=== PATIENT | male | born 1945 | race Caucasian/White ===

== ENCOUNTER → 2016-11-25 | Outpatient (CLI) | payer MEDICARE, OTHER ==
[2016-11-25 18:21] LABS: Basophils # (A) 0.1 k/uL (0-0.2); Basophils % (A) 1 %; CHCM 32.8; Eosinophils # (A) 0.3 k/uL (0-0.7); Eosinophils % (A) 7 %; HCT 44.5 % (39.0-53.0); HDW 2.42; HGB 14.6 gm/dL (13.0-17.5); Luc # (Auto) 0.14; Luc % (Auto) 3; Lymphocytes # (A) 0.9 k/uL (1.0-4.8); Lymphocytes % (A) 22 %; MCH 31.3 pg (25.0-35.0); MCHC 32.9 g/dL (31.0-37.0); MCV 94.9 fL (80.0-100.0); Mean Platelet Volume 8.1; Monocytes # (A) 0.4 k/uL (0-1.0); Monocytes % (A) 8 %; Neutrophils # (A) 2.5 k/uL (1.3-7.7); Neutrophils % (A) 58 %; RBC 4.69 m/uL (4.30-5.90); RDW 12.5 % (11.5-15.5); WBC 4.3 k/uL (3.8-10.6); WBC (Perox) 4.38
== END | disposition home or self-care (01) ==
LOC: MMGSC 09:42
PROVIDERS: ATTEND Family Medicine
DX: Z00.00 Encounter for general adult medical examination without abnormal findings (principal); R97.20 Elevated prostate specific antigen [PSA]; I10 Essential (primary) hypertension; Z12.5 Encounter for screening for malignant neoplasm of prostate
CPT/HCPCS: 84439; 84443; 85025; G0103; 36415; 80053; 80061

== ENCOUNTER → 2016-11-25 | Outpatient (CLI) | payer MEDICARE, OTHER ==
[2016-11-25 18:26] LABS: ALT 39 U/L (21-72); AST 32 U/L (17-59); Alkaline Phosphatase 56 U/L (38-126); Anion Gap 10 mmol/L; Blood Urea Nitrogen 20 mg/dL (9-20); Calcium 9.5 mg/dL (8.4-10.2); Carbon Dioxide 28 mmol/L (22-30); Chloride 102 mmol/L (98-107); Cholesterol 176 mg/dL (<200); Glucose 104 mg/dL (74-99); HDL Cholesterol 65 mg/dL (40-60); Non-African American GFR(MDRD) 60 (>60 ml/min/1.73 sqM); Potassium 5.4 mmol/L (3.5-5.1); Sodium 140 mmol/L (137-145); Total Protein 7.9 g/dL (6.3-8.2); Triglycerides 83 mg/dL (<150)
== END ==
LOC: MMGSC 09:35
PROVIDERS: ATTEND Internal Medicine Interventional Cardiology
DX: E78.2 Mixed hyperlipidemia (principal)
CPT/HCPCS: 36415; 80053; 80061

== ENCOUNTER → 2016-11-29 | Outpatient (CLI) | payer MEDICARE, OTHER | END | disposition home or self-care (01) | LOC: MMGSC 10:30 | PROVIDERS: ATTEND Family Medicine | DX: E83.52 Hypercalcemia (principal) | CPT/HCPCS: 36415; 84132 ==

== ENCOUNTER → 2017-12-09 | Outpatient (CLI) | payer MEDICARE, OTHER ==
[2017-12-09 10:14] LABS: Basophils % (A) 1 %; Eosinophils # (A) 0.2 k/uL (0-0.7); Eosinophils % (A) 4 %; HCT 41.2 % (39.0-53.0); HGB 14.1 gm/dL (13.0-17.5); Lymphocytes % (A) 24 %; MCH 30.8 pg (25.0-35.0); MCHC 34.1 g/dL (31.0-37.0); MCV 90.4 fL (80.0-100.0); Mean Platelet Volume 7.2; Monocytes # (A) 0.3 k/uL (0-1.0); Monocytes % (A) 7 %; Neutrophils # (A) 2.3 k/uL (1.3-7.7); Neutrophils % (A) 60 %; Platelet Count 185 k/uL (150-450); RBC 4.57 m/uL (4.30-5.90); RDW 12.3 % (11.5-15.5); WBC 3.9 k/uL (3.8-10.6)
[2017-12-09 10:33] LABS: Albumin 4.5 g/dL (3.5-5.0); Calcium 9.9 mg/dL (8.4-10.2); Potassium 4.9 mmol/L (3.5-5.1); Total Bilirubin 0.8 mg/dL (0.2-1.3); Total Protein 7.5 g/dL (6.3-8.2)
[2017-12-09 10:46] LABS: T4, Free (Free Thyroxine) 1.04 ng/dL (0.78-2.19)
[2017-12-09 18:57] LABS: Hemoglobin A1C 5.5 % (4.0-6.0)
== END | disposition home or self-care (01) ==
LOC: LABWHC1 09:35
PROVIDERS: ATTEND Internal Medicine Interventional Cardiology
DX: R73.01 Impaired fasting glucose (principal); E78.2 Mixed hyperlipidemia; R97.20 Elevated prostate specific antigen [PSA]; E78.5 Hyperlipidemia, unspecified; I49.9 Cardiac arrhythmia, unspecified
CPT/HCPCS: 36415; 80053; 80061; 82607; 83036; 83735; 84153; 84154; 84439; 84443; 85025

== ENCOUNTER → 2018-06-15 | Outpatient (CLI) | payer MEDICARE, OTHER ==
[2018-06-15 09:21] LABS: Basophils % (A) 1 %; Eosinophils # (A) 0.2 k/uL (0-0.7); Eosinophils % (A) 5 %; HCT 38.8 % (39.0-53.0); HGB 12.4 gm/dL (13.0-17.5); Lymphocytes # (A) 0.8 k/uL (1.0-4.8); Lymphocytes % (A) 22 %; MCH 30.7 pg (25.0-35.0); MCV 95.9 fL (80.0-100.0); Mean Platelet Volume 7.1; Monocytes # (A) 0.3 k/uL (0-1.0); Monocytes % (A) 8 %; Neutrophils # (A) 2.1 k/uL (1.3-7.7); Neutrophils % (A) 60 %; Platelet Count 160 k/uL (150-450); RBC 4.05 m/uL (4.30-5.90); WBC 3.4 k/uL (3.8-10.6)
[2018-06-15 10:08] LABS: T4, Free (Free Thyroxine) 1.01 ng/dL (0.78-2.19)
[2018-06-15 10:22] LABS: Prostate Specific Antigen 2.69 ng/mL (0.00-4.00)
[2018-06-15 10:32] LABS: Albumin 3.8 g/dL (3.5-5.0); Calcium 9.1 mg/dL (8.4-10.2); Potassium 5.3 mmol/L (3.5-5.1); Total Bilirubin 0.5 mg/dL (0.2-1.3); Total Protein 6.5 g/dL (6.3-8.2)
[2018-06-15 17:38] LABS: Hemoglobin A1C 5.7 % (4.0-6.0)
== END | disposition home or self-care (01) ==
LOC: LABWHC1 08:22
PROVIDERS: ATTEND Internal Medicine Interventional Cardiology
DX: E53.8 Deficiency of other specified B group vitamins (principal); E78.2 Mixed hyperlipidemia; K63.5 Polyp of colon; R97.20 Elevated prostate specific antigen [PSA]; Z51.81 Encounter for therapeutic drug level monitoring; Z79.01 Long term (current) use of anticoagulants
CPT/HCPCS: 36415; 80053; 80061; 82607; 83036; 84153; 84439; 84443; 85025

== ENCOUNTER → 2018-10-29 | Outpatient (CLI) | payer MEDICARE, OTHER ==
[2018-10-29 09:41] LABS: Basophils # (A) 0.1 k/uL (0-0.2); Basophils % (A) 2 %; Eosinophils # (A) 0.2 k/uL (0-0.7); Eosinophils % (A) 5 %; HCT 39.3 % (39.0-53.0); HGB 13.2 gm/dL (13.0-17.5); Lymphocytes # (A) 0.7 k/uL (1.0-4.8); Lymphocytes % (A) 20 %; MCH 31.5 pg (25.0-35.0); MCHC 33.5 g/dL (31.0-37.0); MCV 93.9 fL (80.0-100.0); Mean Platelet Volume 7.1; Monocytes # (A) 0.4 k/uL (0-1.0); Monocytes % (A) 10 %; Neutrophils # (A) 2.2 k/uL (1.3-7.7); Neutrophils % (A) 59 %; Platelet Count 173 k/uL (150-450); RBC 4.19 m/uL (4.30-5.90); RDW 13.5 % (11.5-15.5); WBC 3.7 k/uL (3.8-10.6)
[2018-10-29 16:28] LABS: ALT 23 U/L (10-49); AST 30 U/L (14-35); Alkaline Phosphatase 55 U/L (41-126); Calcium 8.4 mg/dL (8.7-10.3); Carbon Dioxide 27.4 mmol/L (21.6-31.8); Chloride 106 mmol/L (96-109); Cholesterol 135 mg/dL (0-200); Glucose 93 mg/dL (70-110); Magnesium 1.8 mg/dL (1.5-2.4); Potassium 4.4 mmol/L (3.5-5.5); Sodium 140 mmol/L (135-145); Total Bilirubin 0.8 mg/dL (0.3-1.2); Triglycerides <50.0 mg/dL (0.0-149.0); VLDL Calculation 9.98 mg/dL (5.00-40.00)
[2018-10-29 18:37] LABS: Hemoglobin A1C 5.8 % (4.0-6.0)
== END | disposition home or self-care (01) ==
LOC: LABWHC1 08:51
PROVIDERS: ATTEND Internal Medicine Interventional Cardiology
DX: E78.5 Hyperlipidemia, unspecified (principal); E78.2 Mixed hyperlipidemia; T78.3XXA Angioneurotic edema, initial encounter; R73.01 Impaired fasting glucose
CPT/HCPCS: 36415; 80053; 80061; 83036; 83735; 84443; 85025

== ENCOUNTER 2018-12-09 08:50 | Day surgery (SDC) | payer MEDICARE, OTHER ==
[2018-12-07 12:08] VITALS: BMI 27.2
[~2018-12-09 08:50] MED LIST: LACTATED RINGERS 1,000 ML IV SCH
[2018-12-09 09:20] VITALS: RESP 16; TEMP 96.5
[2018-12-09] MEDS ORDERED: LIDOCAINE 1% 20 ML VIAL (10MG/ML) FOR IV START INTRADERMA ONE (09:32)
[2018-12-09] MEDS ORDERED: LIDOCAINE 1% INJ 10MG/ML (20 ML MDV) ONE (09:45)
[2018-12-09] MEDS ORDERED: PROPOFOL 10 MG/ML 20 ML VIAL IV ONE (09:45)
--- NOTE | 2018-12-09 09:55 | P.PCN ---
Date of Procedure: 12/09/18 Procedure(s) Performed: BRIEF HISTORY: Patient is a 73-year-old, pleasant, white male, scheduled for an upper endoscopy with possible dilation as a part of evaluation of intermittent dysphagia to solids for the last 1 year duration. He does have long-standing history of GERD and has been on Protonix 40 mg daily. PROCEDURE PERFORMED: Esophagogastroduodenoscopy with biopsy. PREOPERATIVE DIAGNOSIS: Long-standing history of GERD/intermittent dysphagia.. IV sedation per anesthesia. PROCEDURE: After informed consent was obtained, the patient was brought into the endoscopy unit. IV sedation was administered by Anesthesia under continuous monitoring. Initially the Olympus GIF-140 video endoscope was inserted into the mouth. Esophagus intubated without any difficulty. It was gradually advanced into the stomach and duodenum and carefully examined. The bulb and the second part of the duodenum appeared normal. The scope at this time was withdrawn to the stomach, adequately insufflated with air, and upon careful examination, mucosa of the antrum, body, cardia and the fundus appeared normal. The scope was then withdrawn into the esophagus. Moderate size hiatal hernia noted. The GE junction was located at 37 cm from the incisors. There was a short segment of Crespo's esophagus extending 2-3 mm proximal to the GE junction and this was biopsied. The rest of the esophagus appeared normal. There were no erosions or ulcerations seen. The proximal cervical esophagus was carefully examined and appeared normal and the patient tolerated the procedure well. IMPRESSION: 1. Moderate size hiatal hernia. 2. Short segment Crespo's esophagus. 3. No evidence of esophageal stricture ZENKER'S diverticulum RECOMMENDATIONS: The findings of this examination were discussed with the patient as well as a family. He was advised to follow with the biopsy results. He will continue with Protonix 40 mg daily and follow antireflux measures.
[2018-12-09 10:29] VITALS: BP 107/65; PULSE 45
== END 2018-12-09 10:38 | disposition home or self-care (01) ==
LOC: ORWHC2ENDO 08:50
PROVIDERS: ATTEND Internal Medicine Gastroenterology
DX: K22.70 Barrett's esophagus without dysplasia (principal); K21.9 Gastro-esophageal reflux disease without esophagitis; K44.9 Diaphragmatic hernia without obstruction or gangrene; Z79.02 Long term (current) use of antithrombotics/antiplatelets; Z79.899 Other long term (current) drug therapy; E78.5 Hyperlipidemia, unspecified
CPT/HCPCS: 88305; 43239; J2001; J2704

== ENCOUNTER → 2019-06-22 | Outpatient (CLI) | payer MEDICARE, OTHER ==
[2019-06-22 09:28] LABS: HCT 39.1 % (39.0-53.0); HGB 12.7 gm/dL (13.0-17.5); MCH 30.3 pg (25.0-35.0); MCHC 32.4 g/dL (31.0-37.0); MCV 93.6 fL (80.0-100.0); Mean Platelet Volume 6.8; Platelet Count 160 k/uL (150-450); RBC 4.18 m/uL (4.30-5.90); RDW 12.7 % (11.5-15.5); WBC 3.8 k/uL (3.8-10.6)
[2019-06-22 10:39] LABS: Eosinophils # (M) 0.38 k/uL (0-0.7); Lymphocytes # (M) 1.14 k/uL (1.0-4.8); Monocytes # (M) 0.42 k/uL (0-1.0); Neutrophils % (M) 49 %; Nucleated Red Blood Cells 0 /100 WBC (0-0); Total Cells Counted 100
[2019-06-22 17:10] LABS: African American GFR (CKD) 76.2 (60.0-200.0); Albumin 4.3 g/dL (3.80-4.90); Albumin/Globulin Ratio 2.15 (1.60-3.17); Anion Gap 7.5 mmol/L (4.00-12.00); BUN/Creat Ratio 17.27 Ratio (12.00-20.00); Calcium 8.8 mg/dL (8.7-10.3); Carbon Dioxide 25.5 mmol/L (21.6-31.8); Chol/HDL Ratio 2.49; LDL Cholesterol,Calculated 73.4 mg/dL (0.0-131.0); Magnesium 1.8 mg/dL (1.5-2.4); Potassium 4.5 mmol/L (3.5-5.5); Total Bilirubin 0.6 mg/dL (0.3-1.2); Total Protein 6.3 g/dL (6.2-8.2); VLDL Calculation 11.6 mg/dL (5.00-40.00)
[2019-06-22 20:36] LABS: Hemoglobin A1C 5.7 % (4.0-6.0)
== END | disposition home or self-care (01) ==
LOC: LABWHC1 08:20
PROVIDERS: ATTEND Nurse Practitioner Adult Health
DX: R73.01 Impaired fasting glucose (principal); E78.5 Hyperlipidemia, unspecified; K22.70 Barrett's esophagus without dysplasia; I49.9 Cardiac arrhythmia, unspecified; R13.14 Dysphagia, pharyngoesophageal phase; E78.2 Mixed hyperlipidemia
CPT/HCPCS: 36415; 80053; 80061; 82550; 83036; 83735; 84443; 85025

== ENCOUNTER → 2019-11-12 | Outpatient (CLI) | payer MEDICARE, OTHER ==
[2019-11-12 10:09] LABS: Basophils % (A) 0 %; Eosinophils # (A) 0.2 k/uL (0-0.7); Eosinophils % (A) 6 %; HCT 41.3 % (39.0-53.0); HGB 13.5 gm/dL (13.0-17.5); Lymphocytes # (A) 0.8 k/uL (1.0-4.8); Lymphocytes % (A) 21 %; MCH 30.9 pg (25.0-35.0); MCHC 32.7 g/dL (31.0-37.0); MCV 94.6 fL (80.0-100.0); Mean Platelet Volume 7.7; Monocytes # (A) 0.3 k/uL (0-1.0); Monocytes % (A) 8 %; Neutrophils # (A) 2.2 k/uL (1.3-7.7); Neutrophils % (A) 60 %; Platelet Count 154 k/uL (150-450); RBC 4.37 m/uL (4.30-5.90); RDW 12.3 % (11.5-15.5); WBC 3.7 k/uL (3.8-10.6)
[2019-11-12 10:14] LABS: Appearance,Urine Clear (Clear); Bilirubin,Urine Negative (Negative); Blood,Urine Negative (Negative); Color,Urine Yellow; Glucose,Urine (UA) Negative (Negative); Ketones,Urine Negative (Negative); Leukocyte Esterase,Urine Negative (Negative); Nitrite,Urine Negative (Negative); PH, Urine 6.5 (5.0-8.0); Protein,Urine Negative (Negative); Specific Gravity,Urine 1.011 (1.001-1.035); Urobilinogen,Urine <2.0 mg/dL (<2.0)
[2019-11-12 17:50] LABS: T4, Free (Free Thyroxine) 1.2 ng/dL (0.80-1.80)
[2019-11-12 18:06] LABS: Albumin 4.4 g/dL (3.80-4.90); Albumin/Globulin Ratio 2.32 (1.60-3.17); Anion Gap 5.2 mmol/L (4.00-12.00); BUN/Creat Ratio 16.43 Ratio (12.00-20.00); Calcium 9.1 mg/dL (8.7-10.3); Carbon Dioxide 30.8 mmol/L (21.6-31.8); Chol/HDL Ratio 2.52; Globulin 1.9 g/dL (1.6-3.3); LDL Cholesterol,Calculated 82.6 mg/dL (0.0-131.0); Magnesium 2.1 mg/dL (1.5-2.4); Non-African American GFR(CKD) 49.1 (60.0-200.0); Potassium 4.5 mmol/L (3.5-5.5); Total Bilirubin 0.5 mg/dL (0.3-1.2); Total Protein 6.3 g/dL (6.2-8.2); VLDL Calculation 11.4 mg/dL (5.00-40.00)
== END | disposition home or self-care (01) ==
LOC: LABWHC1 09:26
PROVIDERS: ATTEND Nurse Practitioner Adult Health
DX: E78.2 Mixed hyperlipidemia (principal)
CPT/HCPCS: 36415; 80053; 80061; 81003; 82306; 82550; 82607; 83735; 84153; 84439; 84443; 85025

== ENCOUNTER → 2019-12-20 | Outpatient (CLI) | payer MEDICARE, OTHER | END | disposition home or self-care (01) | DX: N28.9 Disorder of kidney and ureter, unspecified (principal) | CPT/HCPCS: 36415; 80048 ==

== ENCOUNTER → 2020-03-20 | Outpatient (CLI) | payer MEDICARE, OTHER ==
[2020-03-20 10:02] LABS: Basophils % (A) 1 %; Eosinophils # (A) 0.1 k/uL (0-0.7); Eosinophils % (A) 4 %; HCT 41.2 % (39.0-53.0); HGB 13.3 gm/dL (13.0-17.5); Lymphocytes # (A) 0.8 k/uL (1.0-4.8); Lymphocytes % (A) 24 %; MCH 30.5 pg (25.0-35.0); MCHC 32.2 g/dL (31.0-37.0); MCV 94.8 fL (80.0-100.0); Mean Platelet Volume 7.4; Monocytes # (A) 0.3 k/uL (0-1.0); Monocytes % (A) 9 %; Neutrophils # (A) 1.9 k/uL (1.3-7.7); Neutrophils % (A) 58 %; Platelet Count 184 k/uL (150-450); RBC 4.34 m/uL (4.30-5.90); RDW 12.3 % (11.5-15.5); WBC 3.3 k/uL (3.8-10.6)
[2020-03-20 16:49] LABS: Hemoglobin A1C 5.8 % (4.0-6.0)
[2020-03-20 18:03] LABS: African American GFR (CKD) 75.7 (60.0-200.0); Albumin 4.2 g/dL (3.80-4.90); Anion Gap 6.6 mmol/L (4.00-12.00); BUN/Creat Ratio 14.55 Ratio (12.00-20.00); Carbon Dioxide 27.4 mmol/L (21.6-31.8); Chol/HDL Ratio 2.35; Globulin 2.1 g/dL (1.6-3.3); LDL Cholesterol,Calculated 74.4 mg/dL (0.0-131.0); Magnesium 1.9 mg/dL (1.5-2.4); Non-African American GFR(CKD) 65.3 (60.0-200.0); Potassium 5.3 mmol/L (3.5-5.5); Total Bilirubin 0.7 mg/dL (0.3-1.2); Total Protein 6.3 g/dL (6.2-8.2); Uric Acid 7.5 mg/dL (3.7-8.7); VLDL Calculation 10.6 mg/dL (5.00-40.00)
[2020-03-20 18:11] LABS: T4, Free (Free Thyroxine) 1.3 ng/dL (0.80-1.80)
== END | disposition home or self-care (01) ==
LOC: LABWHC1 08:47
PROVIDERS: ATTEND Internal Medicine Interventional Cardiology
DX: I48.0 Paroxysmal atrial fibrillation (principal); N18.2 Chronic kidney disease, stage 2 (mild); R73.01 Impaired fasting glucose; I73.00 Raynaud's syndrome without gangrene; E78.2 Mixed hyperlipidemia
CPT/HCPCS: 36415; 80053; 80061; 82550; 83036; 83735; 84439; 84443; 84550; 85025; 86038

== ENCOUNTER → 2020-07-17 | Outpatient (CLI) | payer MEDICARE, OTHER ==
[2020-07-17 11:09] LABS: Basophils % (A) 1 %; Eosinophils # (A) 0.3 k/uL (0-0.7); Eosinophils % (A) 6 %; HCT 43.4 % (39.0-53.0); HGB 14.4 gm/dL (13.0-17.5); Lymphocytes # (A) 0.8 k/uL (1.0-4.8); Lymphocytes % (A) 20 %; MCH 31.3 pg (25.0-35.0); MCHC 33.2 g/dL (31.0-37.0); MCV 94.3 fL (80.0-100.0); Mean Platelet Volume 6.7; Monocytes # (A) 0.4 k/uL (0-1.0); Monocytes % (A) 9 %; Neutrophils # (A) 2.5 k/uL (1.3-7.7); Neutrophils % (A) 61 %; Platelet Count 174 k/uL (150-450); RDW 11.7 % (11.5-15.5); WBC 4.1 k/uL (3.8-10.6)
[2020-07-17 15:16] LABS: African American GFR (CKD) 75.7 (60.0-200.0); Albumin 4.4 g/dL (3.80-4.90); Albumin/Globulin Ratio 1.83 (1.60-3.17); Anion Gap 5.9 mmol/L (4.00-12.00); BUN/Creat Ratio 14.55 Ratio (12.00-20.00); Calcium 9.7 mg/dL (8.7-10.3); Carbon Dioxide 30.1 mmol/L (21.6-31.8); Chol/HDL Ratio 2.41; Globulin 2.4 g/dL (1.6-3.3); LDL Cholesterol,Calculated 77.6 mg/dL (0.0-131.0); Non-African American GFR(CKD) 65.3 (60.0-200.0); Potassium 5.5 mmol/L (3.5-5.5); Total Protein 6.8 g/dL (6.2-8.2); VLDL Calculation 12.4 mg/dL (5.00-40.00)
[2020-07-17 15:24] LABS: T4, Free (Free Thyroxine) 1.2 ng/dL (0.80-1.80)
[2020-07-17 17:42] LABS: Hemoglobin A1C 5.8 % (4.0-6.0)
== END | disposition home or self-care (01) ==
LOC: LABWHC1 09:39
PROVIDERS: ATTEND Internal Medicine Interventional Cardiology
DX: E78.2 Mixed hyperlipidemia (principal); N18.2 Chronic kidney disease, stage 2 (mild); I73.00 Raynaud's syndrome without gangrene
CPT/HCPCS: 36415; 80053; 80061; 82550; 83036; 84439; 84443; 84550; 85025

== ENCOUNTER → 2021-01-09 | Outpatient (CLI) | payer MEDICARE, OTHER ==
--- NOTE | 2021-01-09 14:55 | CT ---
EXAMINATION TYPE: CT angio chest DATE OF EXAM: 01/09/2021 2:42 PM COMPARISON: 03/15/2015 HISTORY: Thoracic aortic aneurysm without rupture CT DLP: 658.8 mGycm Automated exposure control for dose reduction was used. CONTRAST: CTA scan of the thorax is performed without and with IV Contrast, patient injected with 80 mL of Isov ue 370, pulmonary embolism protocol. . FINDINGS: LUNGS: The lungs are grossly clear, there is no concerning parenchymal mass or nodule identified. T here is no pleural effusion or pneumothorax seen. The tracheobronchial tree is patent. Hyperinflatio n lungs correlate for COPD MEDIASTINUM: There is satisfactory enhancement of the pulmonary artery and its branches, there is no CT evidence for pulmonary embolism. There are no greater than 1 cm hilar or mediastinal lymph nodes. No pericardial effusion is seen. Atherosclerotic change of the aorta. Maximal dimension again blaine ins approximately 4 cm. Coronary artery calcification noted. Calcified lymph nodes in the hilum bilat erally similar to the prior exam. OTHER: Hypertrophic and degenerative changes of the spine small amount of air is seen within the SVC likely iatrogenic. Large hiatal hernia. IMPRESSION: 1. Stable mild aneurysmal dilation ascending aorta unchanged from the exam of 2014 with a maximal dim ension of approximately 4 cm. 2. Coronary artery calcification. 3. Large hiatal hernia. 4. Correlate for COPD
== END | disposition home or self-care (01) ==
LOC: RADCTMAIN 13:06
PROVIDERS: ATTEND Nurse Practitioner Adult Health
DX: I25.10 Atherosclerotic heart disease of native coronary artery without angina pectoris (principal); K44.9 Diaphragmatic hernia without obstruction or gangrene; I71.2 Thoracic aortic aneurysm, without rupture
CPT/HCPCS: 82565; 84520; 71275; 36415; Q9967

== ENCOUNTER → 2021-01-16 | Outpatient (CLI) | payer MEDICARE, OTHER ==
[2021-01-16 10:26] LABS: Appearance,Urine Clear (Clear); Bilirubin,Urine Negative (Negative); Blood,Urine Negative (Negative); Color,Urine Yellow; Glucose,Urine (UA) Negative (Negative); Ketones,Urine Negative (Negative); Leukocyte Esterase,Urine Negative (Negative); Nitrite,Urine Negative (Negative); PH, Urine 6.5 (5.0-8.0); Protein,Urine Negative (Negative); Urobilinogen,Urine <2.0 mg/dL (<2.0)
[2021-01-16 18:47] LABS: Basophils # (A) 0.05 X 10*3/uL (0.00-0.10); Basophils % (A) 1.2 %; Eosinophils # (A) 0.22 X 10*3/uL (0.04-0.35); Eosinophils % (A) 5.2 %; HCT 40.4 % (39.6-50.0); Lymphocytes % (A) 21.2 %; MCH 30.4 pg (27.0-32.0); MCHC 32.2 g/dL (32.0-37.0); MCV 94.6 fL (80.0-97.0); Mean Platelet Volume 9.9 fL (9.5-12.2); Monocytes # (A) 0.58 X 10*3/uL (0.20-1.00); Monocytes % (A) 13.6 %; Neutrophils # (A) 2.49 X 10*3/uL (1.80-7.70); Neutrophils % (A) 58.6 %; Platelet Count 179 X 10*3/uL (140-440); RBC 4.27 X 10*6/uL (4.40-5.60); RDW 12.3 % (11.5-14.5); WBC 4.25 X 10*3/uL (4.50-10.00)
[2021-01-16 19:01] LABS: African American GFR (CKD) 75.7 (60.0-200.0); Albumin 4.5 g/dL (3.80-4.90); Albumin/Globulin Ratio 2.37 (1.60-3.17); Anion Gap 9.3 mmol/L (4.00-12.00); BUN/Creat Ratio 13.64 Ratio (12.00-20.00); Calcium 9.4 mg/dL (8.7-10.3); Carbon Dioxide 26.7 mmol/L (21.6-31.8); Chol/HDL Ratio 2.54; Globulin 1.9 g/dL (1.6-3.3); LDL Cholesterol,Calculated 77.2 mg/dL (0.0-131.0); Magnesium 1.9 mg/dL (1.5-2.4); Non-African American GFR(CKD) 65.3 (60.0-200.0); Potassium 4.6 mmol/L (3.5-5.5); Total Bilirubin 0.7 mg/dL (0.2-1.2); Total Protein 6.4 g/dL (6.2-8.2); VLDL Calculation 13.8 mg/dL (5.00-40.00)
[2021-01-16 19:07] LABS: T4, Free (Free Thyroxine) 1.2 ng/dL (0.80-1.80)
[2021-01-16 19:08] LABS: Prostate Specific Antigen 2.9 ng/mL (0.0-6.5)
[2021-01-16 20:58] LABS: Hemoglobin A1C 5.8 % (4.0-6.0)
== END | disposition home or self-care (01) ==
LOC: LABWHC1 09:05
PROVIDERS: ATTEND Family Medicine
DX: Z00.00 Encounter for general adult medical examination without abnormal findings (principal); N18.2 Chronic kidney disease, stage 2 (mild); N40.0 Benign prostatic hyperplasia without lower urinary tract symptoms; E78.5 Hyperlipidemia, unspecified; E55.9 Vitamin D deficiency, unspecified; I48.0 Paroxysmal atrial fibrillation; R73.03 Prediabetes
CPT/HCPCS: 36415; 80053; 80061; 81003; 82306; 82550; 82607; 83036; 83735; 84153; 84439; 84443; 84550; 85025

== ENCOUNTER → 2021-03-01 | Outpatient (CLI) | payer MEDICARE, OTHER ==
--- NOTE | 2021-03-01 15:37 | US ---
EXAMINATION TYPE: US kidneys/renal and bladder DATE OF EXAM: 03/01/2021 COMPARISON: NONE CLINICAL HISTORY: Stage 2 CKD N18.2. Patient states he has a hard time emptying bladder. EXAM MEASUREMENTS: Right Kidney: 10.4 x 4.7 x 5.5 cm Left Kidney: 11.0 x 4.7 x 5.8 cm Post Void Residual Volume: 128.2 mL Right Kidney: lateral mid exophytic cystic lesion = 1.0 x 1.0 x 0.8 cm no hydronephrosis or shadowi ng renal calculi. Left Kidney: No hydronephrosis or masses seen Bladder: distended, anechoic Bilateral Jets not seen Abnormal Post Void Residual 120 mL postvoid residual is large. IMPRESSION: 1. Large amount of post void residual in the urinary bladder of 128 mL. Consider bladder outlet obstr uction. The ureteral jets are not visualized. 2. No hydronephrosis or shadowing renal calculi. 3. Right renal exophytic cyst measuring 1 cm.
== END | disposition home or self-care (01) ==
LOC: RADUSWWP 12:14
PROVIDERS: ATTEND Family Medicine
DX: N18.2 Chronic kidney disease, stage 2 (mild) (principal); N28.1 Cyst of kidney, acquired; R39.198 Other difficulties with micturition
CPT/HCPCS: 76770

== ENCOUNTER → 2021-05-10 | Outpatient (CLI) | payer MEDICARE, OTHER ==
[2021-05-10 15:47] LABS: Basophils # (A) 0.04 X 10*3/uL (0.00-0.10); Eosinophils # (A) 0.23 X 10*3/uL (0.04-0.35); Eosinophils % (A) 5.6 %; HCT 40.2 % (39.6-50.0); HGB 13.4 g/dL (13.0-17.0); Lymphocytes # (A) 0.74 X 10*3/uL (0.90-5.00); Lymphocytes % (A) 17.9 %; MCH 31.5 pg (27.0-32.0); MCHC 33.3 g/dL (32.0-37.0); MCV 94.6 fL (80.0-97.0); Mean Platelet Volume 9.4 fL (9.5-12.2); Monocytes # (A) 0.52 X 10*3/uL (0.20-1.00); Monocytes % (A) 12.6 %; Neutrophils # (A) 2.58 X 10*3/uL (1.80-7.70); Neutrophils % (A) 62.4 %; Platelet Count 177 X 10*3/uL (140-440); RBC 4.25 X 10*6/uL (4.40-5.60); WBC 4.13 X 10*3/uL (4.50-10.00)
[2021-05-10 17:14] LABS: Hemoglobin A1C 5.2 % (4.0-6.0)
[2021-05-10 17:24] LABS: African American GFR (CKD) 75.2 (60.0-200.0); Albumin 4.4 g/dL (3.80-4.90); Albumin/Globulin Ratio 1.69 (1.60-3.17); Anion Gap 11.1 mmol/L (4.00-12.00); Calcium 8.8 mg/dL (8.7-10.3); Carbon Dioxide 24.9 mmol/L (21.6-31.8); Chol/HDL Ratio 2.47; Globulin 2.6 g/dL (1.6-3.3); LDL Cholesterol,Calculated 68.2 mg/dL (0.0-131.0); Magnesium 1.7 mg/dL (1.5-2.4); Non-African American GFR(CKD) 64.9 (60.0-200.0); Potassium 4.4 mmol/L (3.5-5.5); Total Bilirubin 0.8 mg/dL (0.2-1.2); VLDL Calculation 16.8 mg/dL (5.00-40.00)
[2021-05-10 17:32] LABS: T4, Free (Free Thyroxine) 1.2 ng/dL (0.80-1.80)
[2021-05-11 13:00] LABS: Free Kappa Lt Chain Qnt, Serum 2.15 mg/dL (0.33-1.94)
== END | disposition home or self-care (01) ==
LOC: LABWHC1 08:51
PROVIDERS: ATTEND Family Medicine
DX: E78.2 Mixed hyperlipidemia (principal)
CPT/HCPCS: 36415; 80053; 80061; 82550; 83036; 83735; 83883; 84439; 84443; 85025; 86038

== ENCOUNTER → 2021-06-21 | Outpatient (CLI) | payer MEDICARE, OTHER ==
--- NOTE | 2021-06-21 15:15 | XR ---
EXAMINATION TYPE: XR bone survey complete DATE OF EXAM: 06/21/2021 COMPARISON: NONE HISTORY: D47.2 monoclonal gammopathy Frontal lateral views of the spine, 2 views of the calvarium, frontal views of the proximal upper and lower extremities, frontal view of the chest, frontal view the pelvis submitted on a total of 16 rocio ges. There is no evident lytic lesion. Some joint space loss present in the medial compartments of the kne es. Probable phleboliths are present within the pelvis. Degenerative disc disease is noted in the spi ne, there is loss of disc height especially at L5-S1 with associated vacuum phenomenon. Cervical, tho racic, lumbar vertebral bodies show preserved height, there is minimal retrolisthesis grade 1 L5-S1, L3-4, anterolisthesis grade 1 L4-5. Apical scarring calcification present in the distribution of the aorta iliac system. Bone mineralization is somewhat reduced. Thoracic spondylosis is present. Retroca rdiac density with central lucencies consistent with probable hiatal hernia with partial intrathoraci c stomach. There are some overlying artifacts. Chest x-ray shows no acute abnormality. Anterolisthesi s grade 1 C3-4, retrolisthesis grade 1 C5-6, loss of intervertebral disc height at the lower cervical spine, C4-5, C5-6 and C6-7. Multilevel facet arthropathy change. IMPRESSION: Degenerative disc disease, hiatal hernia, arthropathy changes are present. IMPRESSION:
== END | disposition home or self-care (01) ==
LOC: RADXRMAIN 14:25
PROVIDERS: ATTEND Internal Medicine Hematology & Oncology
DX: M50.323 Other cervical disc degeneration at C6-C7 level (principal); K44.9 Diaphragmatic hernia without obstruction or gangrene; J45.998 Other asthma; D47.2 Monoclonal gammopathy; M10.9 Gout, unspecified; M12.9 Arthropathy, unspecified
CPT/HCPCS: 77075

== ENCOUNTER → 2021-11-15 | Outpatient (CLI) | payer MEDICARE, OTHER ==
[2021-11-15 14:58] LABS: Basophils # (A) 0.07 X 10*3/uL (0.00-0.10); Basophils % (A) 1.4 %; Eosinophils # (A) 0.24 X 10*3/uL (0.04-0.35); Eosinophils % (A) 4.9 %; HCT 40.1 % (39.6-50.0); HGB 13.2 g/dL (13.0-17.0); Immature Grans, Automated 0.2 %; Lymphocytes # (A) 0.84 X 10*3/uL (0.90-5.00); Lymphocytes % (A) 17.3 %; MCH 30.3 pg (27.0-32.0); MCHC 32.9 g/dL (32.0-37.0); MCV 92.2 fL (80.0-97.0); Mean Platelet Volume 9.2 fL (9.5-12.2); Monocytes # (A) 0.68 X 10*3/uL (0.20-1.00); NRBC Per 100 WBC 0 /100 WBCS (0.0-0.0); Neutrophils # (A) 3.01 X 10*3/uL (1.80-7.70); Neutrophils % (A) 62.2 %; Platelet Count 178 X 10*3/uL (140-440); RBC 4.35 X 10*6/uL (4.40-5.60); RDW 12.1 % (11.5-14.5); WBC 4.85 X 10*3/uL (4.50-10.00)
[2021-11-15 15:28] LABS: ALT 21 U/L (10-49); AST 22 U/L (14-35); African American GFR (CKD) 75.2 (60.0-200.0); Albumin 4.5 g/dL (3.8-4.9); Albumin/Globulin Ratio 1.73 (1.60-3.17); Alkaline Phosphatase 61 U/L (41-126); BUN/Creat Ratio 13.45 Ratio (12.00-20.00); Blood Urea Nitrogen 14.8 mg/dL (9.0-27.0); Calcium 9.6 mg/dL (8.7-10.3); Carbon Dioxide 24.8 mmol/L (20.0-27.5); Chloride 99 mmol/L (96-109); Chol/HDL Ratio 2.39 Ratio; Globulin 2.6 g/dL (1.6-3.3); Glucose 98 mg/dL (70-110); LDL Cholesterol,Calculated 80.4 mg/dL (0.0-131.0); Non-African American GFR(CKD) 64.9 (60.0-200.0); Potassium 5.2 mmol/L (3.5-5.5); Sodium 134 mmol/L (135-145); Total Protein 7.1 g/dL (6.2-8.2); Uric Acid 6.8 mg/dL (3.7-8.7); VLDL Calculation 11.56 mg/dL (5.00-40.00)
== END | disposition home or self-care (01) ==
LOC: LABWHC1 08:43
PROVIDERS: ATTEND Internal Medicine Interventional Cardiology
DX: E78.2 Mixed hyperlipidemia (principal); D47.2 Monoclonal gammopathy; I48.91 Unspecified atrial fibrillation; N18.2 Chronic kidney disease, stage 2 (mild)
CPT/HCPCS: 36415; 80053; 80061; 83036; 83735; 84443; 84550; 85025

== ENCOUNTER → 2022-05-06 | Outpatient (CLI) | payer MEDICARE, OTHER ==
[2022-05-06 15:06] LABS: Basophils # (A) 0.05 X 10*3/uL (0.00-0.10); Basophils % (A) 0.9 %; Eosinophils # (A) 0.26 X 10*3/uL (0.04-0.35); Eosinophils % (A) 4.9 %; HGB 12.8 g/dL (13.0-17.0); Immature Grans, Automated 0.2 %; Lymphocytes # (A) 0.71 X 10*3/uL (0.90-5.00); Lymphocytes % (A) 13.4 %; MCV 93.9 fL (80.0-97.0); Mean Platelet Volume 9.6 fL (9.5-12.2); Monocytes # (A) 0.66 X 10*3/uL (0.20-1.00); Monocytes % (A) 12.4 %; NRBC Per 100 WBC 0 /100 WBCS (0.0-0.0); Neutrophils # (A) 3.62 X 10*3/uL (1.80-7.70); Neutrophils % (A) 68.2 %; Platelet Count 167 X 10*3/uL (140-440); RBC 4.26 X 10*6/uL (4.40-5.60); WBC 5.31 X 10*3/uL (4.50-10.00)
[2022-05-06 15:14] LABS: African American GFR (CKD) 74.7 (60.0-200.0); Albumin 4.3 g/dL (3.8-4.9); Albumin/Globulin Ratio 1.59 (1.60-3.17); Anion Gap 8.9 mmol/L (10.00-18.00); BUN/Creat Ratio 10.91 Ratio (12.00-20.00); Calcium 9.2 mg/dL (8.7-10.3); Carbon Dioxide 26.1 mmol/L (20.0-27.5); Globulin 2.7 g/dL (1.6-3.3); HDL Cholesterol 69.9 mg/dL (40.00-60.00); Non-African American GFR(CKD) 64.4 (60.0-200.0); Potassium 4.9 mmol/L (3.5-5.5); Total Bilirubin 0.8 mg/dL (0.30-1.20); Triglycerides 32.2 mg/dL (0.00-149.00); Uric Acid 6.3 mg/dL (3.7-8.7)
[2022-05-06 15:36] LABS: Chol/HDL Ratio 1.92 Ratio; LDL Cholesterol,Direct Reflex 59.6 mg/dL (0.00-129.00); T4, Free (Free Thyroxine) 1.31 ng/dL (0.800-1.800)
== END | disposition home or self-care (01) ==
LOC: LABWHC1 09:54
PROVIDERS: ATTEND Family Medicine
DX: E78.5 Hyperlipidemia, unspecified (principal); I48.0 Paroxysmal atrial fibrillation; N40.0 Benign prostatic hyperplasia without lower urinary tract symptoms; M10.9 Gout, unspecified; E53.8 Deficiency of other specified B group vitamins; E55.9 Vitamin D deficiency, unspecified
CPT/HCPCS: 84439; 80061; 80053; 82607; 83735; 84443; 84550; 85025; 83721; 82306; 36415; G0103

== ENCOUNTER → 2022-06-06 | Outpatient (CLI) | payer MEDICARE, OTHER ==
--- NOTE | 2022-06-06 09:59 | CT ---
EXAMINATION TYPE: CT angio chest DATE OF EXAM: 06/06/2022 9:14 AM COMPARISON: 01/09/2021, 10:15 HISTORY: Follow-up thoracic aortic aneurysm CT DLP: 683.6 mGycm Automated exposure control for dose reduction was used. CONTRAST: CTA scan of the thorax is performed with IV Contrast, patient injected with 100 mL of Isovue 370, pul monary embolism protocol. . FINDINGS: LUNGS: The lungs are grossly clear, there is no concerning parenchymal mass or nodule identified. T here is no pleural effusion or pneumothorax seen. The tracheobronchial tree is patent. Findings comp atible with COPD. MEDIASTINUM: There is satisfactory enhancement of the pulmonary artery and its branches, there is no CT evidence for pulmonary embolism. There are no greater than 1 cm hilar or mediastinal lymph nodes. Calcified density overlying prior granulomatous disease. Heart size remains mildly prominent. No luis carlos cardial effusion is seen. Atherosclerotic change of the aorta. Maximal dimension again remains approx imately 4 cm. Coronary artery calcification noted. Calcified lymph nodes in the hilum bilaterally sim ilar to the prior exam. OTHER: Hypertrophic and degenerative changes of the spine noted. Large hiatal hernia. IMPRESSION: 1. Stable borderline\mild ascending aortic aneurysm measuring 4 cm. 2. Atherosclerotic change in coronary arteries, correlate clinically. 3. Large hiatal hernia. 4. COPD.
== END | disposition home or self-care (01) ==
LOC: RADCTMAIN 07:33
PROVIDERS: ATTEND Internal Medicine Interventional Cardiology
DX: I71.2 Thoracic aortic aneurysm, without rupture (principal); K44.9 Diaphragmatic hernia without obstruction or gangrene; J44.9 Chronic obstructive pulmonary disease, unspecified
CPT/HCPCS: 82565; 84520; 71275; Q9967

== ENCOUNTER → 2022-07-29 | Outpatient (CLI) | payer MEDICARE, OTHER ==
[2022-07-29 16:50] LABS: African American GFR (CKD) 67.9 (60.0-200.0); Albumin 4.5 g/dL (3.8-4.9); Albumin/Globulin Ratio 1.92 (1.60-3.17); Anion Gap 8.6 mmol/L (10.00-18.00); BUN/Creat Ratio 14.2 Ratio (12.00-20.00); Blood Urea Nitrogen 16.9 mg/dL (9.0-27.0); Calcium 9.1 mg/dL (8.7-10.3); Carbon Dioxide 27.3 mmol/L (20.0-27.5); Globulin 2.3 g/dL (1.6-3.3); HDL Cholesterol 70.3 mg/dL (40.00-60.00); Non-African American GFR(CKD) 58.6 (60.0-200.0); Potassium 4.3 mmol/L (3.5-5.5); Total Bilirubin 0.7 mg/dL (0.30-1.20); Total Protein 6.8 g/dL (6.2-8.2); Triglycerides 47.7 mg/dL (0.00-149.00)
[2022-07-29 17:03] LABS: Chol/HDL Ratio 2.19 Ratio; LDL Cholesterol,Direct Reflex 71.6 mg/dL (0.00-129.00)
== END | disposition home or self-care (01) ==
LOC: LABWHC1 09:42
PROVIDERS: ATTEND Internal Medicine Interventional Cardiology
DX: I10 Essential (primary) hypertension (principal); E78.2 Mixed hyperlipidemia
CPT/HCPCS: 36415; 80053; 80061; 83721

== ENCOUNTER → 2023-05-22 | Outpatient (CLI) | payer MEDICARE, OTHER ==
[2023-05-22 15:42] LABS: Basophils # (A) 0.05 X 10*3/uL (0.00-0.10); Basophils % (A) 0.9 %; Eosinophils # (A) 0.16 X 10*3/uL (0.04-0.35); Eosinophils % (A) 2.8 %; HCT 41.9 % (39.6-50.0); HGB 13.9 d/dL (13.0-17.0); Lymphocytes # (A) 1.01 X 10*3/uL (0.90-5.00); Lymphocytes % (A) 17.8 %; MCH 30.8 pg (27.0-32.0); MCHC 33.2 d/dL (32.0-37.0); MCV 92.9 FL (80.0-97.0); Mean Platelet Volume 9.2 FL (9.5-12.2); Monocytes % (A) 10.5 %; NRBC Per 100 WBC 0 X 10*3/uL (0.00-0.01); Neutrophils # (A) 3.86 X 10*3/uL (1.80-7.70); Neutrophils % (A) 67.8 %; Platelet Count 188 X 10*3/uL (140-440); RBC 4.51 X 10*6/uL (4.40-5.60); RDW 11.9 % (11.5-14.5); WBC 5.69 X 10*3/uL (4.50-10.00)
[2023-05-22 16:53] LABS: ALT 24 U/L (10-49); AST 22 U/L (14-35); Albumin 4.5 d/dL (3.8-4.9); Albumin/Globulin Ratio 2.14 Ratio (1.60-3.17); Alkaline Phosphatase 72 U/L (41-126); BUN/Creat Ratio 12.08 Ratio (12.00-20.00); Blood Urea Nitrogen 14.5 mg/dL (9.0-27.0); Calcium 9.1 mg/dL (8.7-10.3); Carbon Dioxide 25.7 mmol/L (21.6-31.8); Chloride 102 mmol/L (96-109); Chol/HDL Ratio 2.04 Ratio; Globulin 2.1 d/dL (1.6-3.3); Glucose 93 mg/dL (70-110); LDL Cholesterol,Calculated 56.2 mg/dL (0.0-131.0); Potassium 4.7 mmol/L (3.5-5.5); Sodium 138 mmol/L (135-145); T4, Free (Free Thyroxine) 1.55 ng/dL (0.80-1.80); Total Bilirubin 0.5 mg/dL (0.3-1.2); Total Protein 6.6 d/dL (6.2-8.2); Uric Acid 6.8 mg/dL (3.7-8.7); VLDL Calculation 8.98 mg/dL (5.00-40.00)
== END | disposition home or self-care (01) ==
LOC: LABWHC1 09:32
PROVIDERS: ATTEND Family Medicine
DX: Z12.5 Encounter for screening for malignant neoplasm of prostate (principal); E78.2 Mixed hyperlipidemia; I48.0 Paroxysmal atrial fibrillation; N40.0 Benign prostatic hyperplasia without lower urinary tract symptoms; M10.9 Gout, unspecified; E53.8 Deficiency of other specified B group vitamins; E55.9 Vitamin D deficiency, unspecified; R73.01 Impaired fasting glucose
CPT/HCPCS: 84439; 80061; 80053; 82607; 84443; 84550; 85025; 82306; 83036; 36415; G0103

== ENCOUNTER 2023-07-23 07:05 | Day surgery (SDC) | payer MEDICARE, OTHER ==
[2023-07-23] MEDS ORDERED: BENZOCAINE SPRAY 1 CAN TOPICAL ONE (08:22)
[2023-07-23] MEDS ORDERED: PROPOFOL 10 MG/ML 20 ML VIAL IV ONE (08:24)
[2023-07-23] MEDS ORDERED: LIDOCAINE 1% INJ 10MG/ML (20 ML MDV) ONE (08:24)
--- NOTE | 2023-07-23 08:54 | P.PCN ---
Date of Procedure: 07/23/23 Description of Procedure: Indication: Atrial fibrillation Procedure Description: After explaining the procedure to the patient, it's risk and complications, blood pressure, heart rate and O2 saturation were monitored. The throat was sprayed with Cetacaine. Patient received sedation per anesthesia department. The probe was introduced into the esophagus without difficulty. Images were obtained. Following that, the probe was removed. There was no immediate complication. Findings: Left atrium size is dilated, spontaneous contrast was noted. Left atrial appendage was normal. Left ventricular size is normal with mild global hypokinesis, ejection fraction 45-50%. The aortic valve is a bicuspid valve with preserved opening. Mitral valve is normal, tricuspid valve is normal. Descending thoracic aorta revealed mild atherosclerotic changes. No pericardial effusion was noted. Contrast bubble study revealed no shunting across the interatrial septum. Doppler: Pulse wave and color Doppler were obtained, an revealed moderate aortic regurgitation with mild mitral and [id number] tricuspid regurgitation, there was no shunting by color Doppler study. Conclusion: 1. Dilated left atrium with spontaneous contrast and normal appearance of the left atrial appendage 2. Normal limits ventricle size with mild global hypokinesis 3. Bicuspid aortic valve with preserved opening and moderate aortic regurgitation 4. And mild mitral with [id number] tricuspid regurgitation 5. No shunting across the interatrial septum Cardioversion: After obtaining a BELINDA and sedated state a synchronized biphasic cardioversion was performed with 150 J with christianity of sinus mechanism, there was no i mmediate complications.
[2023-07-23] MEDS ORDERED: DABIGATRAN 150 MG CAP PO SCH (09:00)
[2023-07-23] MEDS ORDERED: lisinopriL 5 MG TAB PO SCH (09:00)
[2023-07-23] MEDS ORDERED: CHOLECALCIFEROL 25 MCG (1000 IU) TABLET PO SCH (09:00)
[2023-07-23] MEDS ORDERED: CYANOCOBALAMIN 500 MCG TAB PO SCH (09:00)
[2023-07-23] MEDS ORDERED: SODIUM CHLORIDE 0.9% 1,000 ML IV SCH (09:00)
[2023-07-23] MEDS ORDERED: MULTIVITAMINS, THERA 1 EACH TAB PO SCH (09:00)
[2023-07-23] MEDS ORDERED: NON FORMULARY DRUG (Pantoprazole Sodium [Protonix] 20 MG Tablet.Dr) PO SCH (09:00)
[2023-07-23 09:10] VITALS: TEMP 97.9
[2023-07-23 09:50] VITALS: BP 124/80; PULSE 54; RESP 16
[2023-07-23] MEDS ORDERED: ATORVASTATIN 40 MG TAB PO SCH (21:00)
[2023-07-23] MEDS ORDERED: TAMSULOSIN 0.4 MG CAP.ER.24H PO SCH (21:00)
== END 2023-07-23 10:14 | disposition home or self-care (01) ==
LOC: OR 07:05
PROVIDERS: ATTEND Internal Medicine Interventional Cardiology
DX: I08.3 Combined rheumatic disorders of mitral, aortic and tricuspid valves (principal); I48.11 Longstanding persistent atrial fibrillation; I42.8 Other cardiomyopathies; I48.3 Typical atrial flutter; Z87.891 Personal history of nicotine dependence; Z79.899 Other long term (current) drug therapy
CPT/HCPCS: 93312; 93320; 93005; 93325; 92960; J2001; J2704

== ENCOUNTER → 2023-11-04 | Outpatient (CLI) | payer MEDICARE, OTHER ==
[2023-11-04 13:01] LABS: Albumin 4.3 g/dL (3.8-4.9); Protein, Total 6.4 g/dL (6.2-8.2)
[2023-11-04 13:03] LABS: Basophils # (A) 0.04 X 10*3/uL (0.00-0.10); Basophils % (A) 0.9 %; Eosinophils # (A) 0.16 X 10*3/uL (0.04-0.35); Eosinophils % (A) 3.5 %; HCT 40.9 % (39.6-50.0); HGB 13.6 g/dL (13.0-17.0); Lymphocytes # (A) 0.94 X 10*3/uL (0.90-5.00); Lymphocytes % (A) 20.7 %; MCH 31.3 pg (27.0-32.0); MCHC 33.3 g/dL (32.0-37.0); Mean Platelet Volume 9.5 FL (9.5-12.2); Monocytes # (A) 0.54 X 10*3/uL (0.20-1.00); Monocytes % (A) 11.9 %; NRBC Per 100 WBC 0 X 10*3/uL (0.00-0.01); Neutrophils # (A) 2.85 X 10*3/uL (1.80-7.70); Neutrophils % (A) 62.6 %; Platelet Count 159 X 10*3/uL (140-440); RBC 4.35 X 10*6/uL (4.40-5.60); RDW 12.3 % (11.5-14.5); WBC 4.55 X 10*3/uL (4.50-10.00)
[2023-11-04 13:49] LABS: ALT 20 U/L (10-49); AST 23 U/L (14-35); Albumin 4.4 g/dL (3.8-4.9); Albumin/Globulin Ratio 1.91 Ratio (1.60-3.17); Alkaline Phosphatase 57 U/L (41-126); BUN/Creat Ratio 16.08 Ratio (12.00-20.00); Blood Urea Nitrogen 19.3 mg/dL (9.0-27.0); Calcium 9.2 mg/dL (8.7-10.3); Carbon Dioxide 25.3 mmol/L (21.6-31.8); Chloride 103 mmol/L (96-109); Chol/HDL Ratio 1.95 Ratio; Globulin 2.3 g/dL (1.6-3.3); Glucose 96 mg/dL (70-110); Potassium 4.4 mmol/L (3.5-5.5); Sodium 139 mmol/L (135-145); Total Bilirubin 0.7 mg/dL (0.3-1.2); Total Protein 6.7 g/dL (6.2-8.2); VLDL Calculation 10.32 mg/dL (5.00-40.00)
[2023-11-04 14:31] LABS: Free Kappa Lt Chain Qnt, Serum 2.43 mg/dL (0.33-1.94); Free Lambda Lt Chain Qnt, Seru 1.49 mg/dL (0.57-2.63)
[2023-11-05 18:07] LABS: Gamma Globulin 0.98 g/dL (0.70-1.50)
== END | disposition home or self-care (01) ==
LOC: LABWHC1 08:11
PROVIDERS: ATTEND Internal Medicine Interventional Cardiology
DX: I48.0 Paroxysmal atrial fibrillation (principal); E78.2 Mixed hyperlipidemia; K22.70 Barrett's esophagus without dysplasia; D47.2 Monoclonal gammopathy; R97.20 Elevated prostate specific antigen [PSA]
CPT/HCPCS: 36415; 80053; 80061; 83036; 83883; 84153; 84165; 84439; 84443; 85025; 86334

== ENCOUNTER 2023-11-13 05:40 | Day surgery (SDC) | payer MEDICARE, OTHER ==
[2023-11-07 11:13] VITALS: BMI 27.9
[2023-11-13] MEDS ORDERED: ePHEDrine 50 MG/ML 1 ML VIAL ONE (07:43)
[2023-11-13] MEDS ORDERED: SUCCINYLCHOLINE CHLORIDE 200 MG/10 ML VIAL IV ONE (07:43)
[2023-11-13] MEDS ORDERED: PROPOFOL 10 MG/ML 20 ML VIAL IV ONE (07:43)
[2023-11-13] MEDS ORDERED: PHENYLEPHRINE 10 MG/ML VIAL ONE (07:43)
[2023-11-13] MEDS ORDERED: fentaNYL (PF) 50 MCG/ML 2 ML AMP ONE (07:43)
[2023-11-13] MEDS ORDERED: HEPARIN SODIUM,PORCINE 10,000 UNIT/ML 1 ML VIAL ONE (07:43)
[2023-11-13] MEDS ORDERED: HYDROmorphone (PF) 1 MG/ML ONE (07:43)
[2023-11-13] MEDS: IV FLUID CONTINUATION 900 ML IV ONE (07:43)
[2023-11-13] MEDS ORDERED: MIDAZOLAM 2 MG/2 ML VIAL ONE (07:43)
[2023-11-13] MEDS ORDERED: LIDOCAINE 1% INJ 10MG/ML (20 ML MDV) ONE (07:59)
[2023-11-13] MEDS: HEPARIN SOD,PORK IN 0.45% NACL 25,000 UNIT in 0.45% NACL 1 250ML.BAG IV ONE (08:00)
[2023-11-13] MEDS: LIDOCAINE 1% INJ 10MG/ML (20 ML MDV) SQ ONE (08:11)
[2023-11-13] MEDS: IOPAMIDOL-370 100ML BTL INJ ONE ×2 (09:54)
[2023-11-13] MEDS ORDERED: ACETAMINOPHEN TAB 325 MG TAB PO PRN (10:22)
--- NOTE | 2023-11-13 10:42 | P.HPCAR ---
History of Present Illness This is Dr. 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 He denies any dizziness loss of consciousness chest pain He continues to complain of palpitations No fever chills cough expectoration ROS: No fever chills or rigors, no cough, phlegm or expectoration, no nausea, vomiting or diarrhea, no hematuria, dysuria, no musculoskeletal complaints, no strokes or seizures, no skin lesions. EXAMINATION: Normal blood pressure Heart rates in the 80-100 range irregular No JVD Clear lungs no rhonchi no crackles Abdomen soft Extremities are warm REVIEW OF LABS, ECG & MEDICAL DATA Normal TSH Physical Exam Vitals: Vital Signs Temp Pulse Resp BP Pulse Ox 11/13/23 06:25 98.4 F 75 16 128/80 98 Intake and Output 11/12/23 11/13/23 11/13/23 22:59 06:59 14:59 Intake Total 726 Balance 726 Intake: IV 726 Other: Weight 88.8 kg Past Medical History Past Medical History: Atrial Fibrillation, GERD/Reflux, Hyperlipidemia, Hypertension, Osteoarthritis (OA), Supraventricular Tachycardia (SVT) Additional Past Medical History / Comment(s): HIATAL HERNIA, gout, last ECHO changes. ? flutter per Dr Dunlap. issues emptying bladder. spots on face to be frozen. bruises easily History of Any Multi-Drug Resistant Organisms: None Reported Past Surgical History: Appendectomy, Cardiac Ablation, Heart Catheterization, Hernia Repair, Tonsillectomy Additional Past Surgical History / Comment(s): inguinal hernia, colonoscopy Past Anesthesia/Blood Transfusion Reactions: No Reported Reaction Smoking Status: Former smoker - Past Family History Brother(s) Family Medical History: Cancer Additional Family Medical History / Comment(s): prostate Father Family Medical History: Diabetes Mellitus Physical Examination Vital Signs Temp Pulse Resp BP Pulse Ox 11/13/23 06:25 98.4 F 75 16 128/80 98 Intake and Output 11/12/23 11/13/23 11/13/23 22:59 06:59 14:59 Intake Total 726 Balance 726 Intake: IV 726 Other: Weight 88.8 kg Results Cardiac Enzymes 11/13/23 Range/Units 06:20 AST 32 (17-59) U/L Comprehensive Metabolic Panel 11/13/23 Range/Units 06:20 AST 32 (17-59) U/L ALT 23 (4-49) U/L Current Medications Generic Name Dose Route Start Last Admin Trade Name Freq PRN Reason Stop Dose Admin Acetaminophen 650 mg 11/13/23 10:22 Acetaminophen Tab 325 Mg Tab PO 12/13/23 10:23 Q6HR PRN Mild Pain (Scale 1 to 3) Atorvastatin Calcium 40 mg 11/13/23 21:00 Atorvastatin 40 Mg Tab PO 12/13/23 21:01 HS BUDDY Dabigatran 150 mg 11/13/23 21:00 Dabigatran 150 Mg Cap PO 12/13/23 21:01 BID BUDDY Protocol Acetaminophen 1,000 mg/ IV 100 mls @ 400 mls/hr 11/13/23 10:22 Solution IVPB 11/13/23 10:36 ONCE ONE Lisinopril 2.5 mg 11/14/23 09:00 Lisinopril 5 Mg Tab PO 12/14/23 09:01 DAILY BUDDY Non-Formulary Medication 20 mg 11/14/23 09:00 Pantoprazole Sodium [Protonix] PO 12/14/23 09:01 DAILY BUDDY Sodium Chloride 12 ml 11/13/23 10:22 Sodium Chloride 0.9% Flush 10 Ml Syringe IV 12/13/23 10:23 Q12HR PRN Line Flush Tamsulosin HCl 0.4 mg 11/13/23 21:00 Tamsulosin 0.4 Mg Cap.Er.24h PO 12/13/23 21:01 HS BUDDY Intake and Output 11/12/23 11/13/23 11/13/23 22:59 06:59 14:59 Intake Total 726 Balance 726 Intake: IV 726 Other: Weight 88.8 kg
--- NOTE | 2023-11-13 10:44 | P.EPPROC ---
- EP Procedure Note Electrophysiology Procedure Note: PROCEDURE A. fib ablation DIAGNOSIS Persistent atrial fibrillation, symptomatic, refractory to therapy Associated atrial fibrillation cardiomyopathy RESULT No left atrial appendage mass seen on intracardiac echo Enlarged left atrium, large pulmonary veins Successful A. fib ablation/pulmonary vein isolation of all veins using cryo- ablation Complete entrance block in all 4 veins confirmed No evidence for phrenic nerve injury Esophageal deflection YES Electrical cardioversion with a synchronized shock across the chest YES PROCEDURE DETAILS Written informed consent prior to procedure. Patient brought to the EP lab. General anesthesia given. Heparin administered. A city maintained above 300 seconds Both groins prepped and draped per protocol and venous sheaths placed. Esophagus intubated, circa catheter for temperature monitoring an endoscope for possible esophageal deflection. Phrenic nerve monitoring performed. Esophageal temperature monitoring performed. Esophageal deflection performed if circa catheter overlapping with the balloon or circa temperature less than 27.5C Intracardiac echocardiography performed. Pericardium evaluated. Left atrial appendage evaluated. Left atrium evaluated along with pulmonary veins Transseptal catheterization performed under fluoroscopic guidance and intracardiac echo guidance Cryoablation sheath exchanged, balloon catheter along with achieve catheter placed in the left atrium. Pulmonary veins isolated in the following sequence: Left superior pulmonary vein followed by left inferior pulmonary vein, followed by right inferior pulmonary vein and lastly right superior pulmonary vein. Phrenic nerve stimulation along with capture thresholds within the SVC and right superior pulmonary vein to identify the phrenic nerve proximity to the cryo- balloon. Pulmonary veins isolated and confirmed with entrance and exit block. Phrenic nerve integrity confirmed at the end of the procedure Ablation of the left atrial roof performed with sequential lesions from the left superior to the right superior pulmonary veins. Ablation of the electrograms confirmed Ablation of the left atrial septum performed with cannulation of the superior branch of the right inferior to achieve ablation of the posterior septum of the left atrium. Ablation of electrograms confirmed Electrical cardioversion performed for persistence of atrial fibrillation despite successful ablation. Following that EP study performed Diagnostic catheters for the high right atrium, His bundle, coronary sinus placed. LA and RA pressures recorded RA pressure: LA pressure: 29/07/17 Diagnostic EP study with coronary sinus pacing and recording Baseline measurements: Sinus cycle length 966 ms, ME interval 223 ms, QRS 91 and QT 405 ms AH 116 and HV 58 ms Venous sheaths were removed and hemostasis assured with a closure device. Patient extubated and transferred to recovery PROCEDURES PERFORMED Diagnostic EP study CS pacing and recording Left and right transseptal catheterization Catheter the mapping of the tachycardia Intracardiac echocardiography Pulmonary vein isolation with transseptal and comprehensive EPS, [id number] Left atrial roof line, +[id number] Linear ablation, left atrium, +[id number] Electrical cardioversion with a synchronized shock across the chest [id number]
--- NOTE | 2023-11-13 10:46 | P.PRLE ---
RE: Huy Ernandez Dear Dr. Mims Mr. Ernandez underwent a diagnostic EP study and ablation for atrial fibrillation He has a significantly enlarged left atrium with atrial fibrillation mediated cardiomyopathy He had developed a similar cardiomyopathy when he had developed atrial flutter in the past He underwent successful A-fib ablation with pulmonary vein isolation, left atrial septal ablation and left atrial roof ablation He does have a mildly prolonged [place] interval at baseline but we will continue beta-blockers for now He will continue Pradaxa lifelong Thank you for entrusting me with the care of the patient Warm regards Sincerely Arnaldo Craig
[2023-11-13] MEDS: ACETAMINOPHEN IV (For NPO) 1,000 MG in EMPTY BAG 1 BAG IVPB ONE (14:13)
[2023-11-13] MEDS: SODIUM CHLORIDE 0.9% 1,000 ML IV SCH (17:59)
[2023-11-13] MEDS: TAMSULOSIN 0.4 MG CAP.ER.24H PO SCH (20:08)
[2023-11-13] MEDS: ATORVASTATIN 40 MG TAB PO SCH (20:08)
[2023-11-13] MEDS: DABIGATRAN 150 MG CAP PO SCH (20:08)
[2023-11-14] MEDS: PANTOPRAZOLE 40 MG TABLET PO SCH (05:58)
--- NOTE | 2023-11-14 07:53 | P.DS ---
Providers Attending physician: Arnaldo Craig Primary care physician: [facility] Course: Patient is resting comfortably in bed Mild sore throat No chest discomfort dizziness lightheadedness He is ambulated to the bathroom several times On examination his blood pressure is normal 106/69 mmHg pulse rate in the 50s and 60s afebrile Breath sounds are clear no rhonchi no crackles heart sounds S1-S2 normal no murmur gallop or rub Groins have healed well no hematoma Impression persistent atrial fibrillation with associated cardiomyopathy Status post A-fib ablation with PVI ablation of the left atrial septum and left atrial roof, cryoablation Plan continue Pradaxa Continue all other cardiac medications Discharge home later today and follow-up with Dr. Poe in a week Instructions were given to him regarding post procedure care Plan - Discharge Summary Discharge Rx Participant: Yes New Discharge Prescriptions: Continue RX: Multivitamins, Thera [Multivitamin (formulary)] 1 tab PO DAILY RX: Cyanocobalamin [Vitamin B-12] 500 mcg PO DAILY RX: Pantoprazole Sodium [Protonix] 20 mg PO DAILY RX: lisinopriL [Prinivil] 2.5 mg PO DAILY RX: Atorvastatin [Lipitor] 40 mg PO HS RX: Dabigatran Etexilate Mesylate [Pradaxa] 150 mg PO BID RX: Cholecalciferol [Vitamin D3 (25 Mcg = 1000 Iu)] 50 mcg PO DAILY RX: Metoprolol Succinate (ER) [Toprol XL] 25 mg PO DAILY RX: Tamsulosin HCl [Flomax] 0.4 mg PO HS Discharge Medication List RX: Atorvastatin [Lipitor] 40 mg PO HS 12/07/18 [History] RX: Cyanocobalamin [Vitamin B-12] 500 mcg PO DAILY 12/07/18 [History] RX: Dabigatran Etexilate Mesylate [Pradaxa] 150 mg PO BID 12/07/18 [History] RX: Multivitamins, Thera [Multivitamin (formulary)] 1 tab PO DAILY 12/07/18 [History] RX: Pantoprazole Sodium [Protonix] 20 mg PO DAILY 12/07/18 [History] RX: lisinopriL [Prinivil] 2.5 mg PO DAILY 12/07/18 [History] RX: Cholecalciferol [Vitamin D3 (25 Mcg = 1000 Iu)] 50 mcg PO DAILY 07/17/23 [History] RX: Tamsulosin HCl [Flomax] 0.4 mg PO HS 07/17/23 [History] RX: Metoprolol Succinate (ER) [Toprol XL] 25 mg PO DAILY 11/07/23 [History] Follow up Appointment(s)/Referral(s): Arnaldo Craig MD [STAFF PHYSICIAN] - As Needed Bj Dunlap MD [STAFF PHYSICIAN] - 1 Week Activity/Diet/Wound Care/Special Instructions: Post EP study - Ablation instructions 1. Keep access sites dry for 2 days. 2. No heavy lifting or straining for 2 days. 3. Avoid bending the hips repeatedly for 2 days. 4. You may go up and down stairs slowly Call if the following is noted 1. Bleeding, increasing swelling or pain at the access sites. 2. Increasing chest discomfort, especially upon taking a deep breath. 3. Increasing shortness of breath, at rest or with exertion. 4. Undue cough / phlegm 5. Difficulty or pain while swallowing. 6. Pain or change in color in the extremities. 7. Fever, chills, rigors. 8. Increasing headache or neurologic symptoms. 9. Dizziness, fainting, palpitations Continue Pradaxa uninterrupted Discharge Disposition: HOME SELF-CARE
[2023-11-14 08:29] VITALS: BP 117/74; PULSE 62; RESP 14; TEMP 97.7
== END 2023-11-14 10:57 | disposition home or self-care (01) ==
LOC: CATHEP 05:40 → 6NMEDSUR 10:13 → CATHEP 11-14 10:57
PROVIDERS: ATTEND Internal Medicine Clinical Cardiac Electrophysiology
DX: I48.19 Other persistent atrial fibrillation (principal); I42.9 Cardiomyopathy, unspecified; I11.9 Hypertensive heart disease without heart failure; I35.1 Nonrheumatic aortic (valve) insufficiency; K21.9 Gastro-esophageal reflux disease without esophagitis; E78.5 Hyperlipidemia, unspecified; M19.90 Unspecified osteoarthritis, unspecified site; Z79.01 Long term (current) use of anticoagulants; Z90.89 Acquired absence of other organs; Z90.49 Acquired absence of other specified parts of digestive tract; Z87.891 Personal history of nicotine dependence; Z83.3 Family history of diabetes mellitus; Z79.899 Other long term (current) drug therapy
CPT/HCPCS: 93656; 93657; 86900; 86901; 84443; 84450; 84460; 86850; C1894 ×2; C1769 ×3; C1760; C1730 ×2; C1759; C1893; C1733; C1766; J2001; Q9967; J1644

== ENCOUNTER 2023-12-31 05:35 | Day surgery (SDC) | payer MEDICARE, OTHER ==
[2023-12-31] MEDS: SODIUM CHLORIDE 0.9% 1,000 ML IV SCH (06:43)
[2023-12-31 07:12] LABS: African American GFR (CKD) 79 (>60 ml/min/1.73 sqM); Anion Gap 9 mmol/L; Blood Urea Nitrogen 19 mg/dL (9-20); Carbon Dioxide 22 mmol/L (22-30); Chloride 104 mmol/L (98-107); Glucose 103 mg/dL (74-99); Non-African American GFR(CKD) 68 (>60 ml/min/1.73 sqM); Sodium 135 mmol/L (137-145)
[2023-12-31] MEDS ORDERED: PROPOFOL 10 MG/ML 20 ML VIAL IV ONE (07:15)
[2023-12-31] MEDS ORDERED: LIDOCAINE 1% INJ 10MG/ML (20 ML MDV) ONE (07:15)
[2023-12-31 07:27] LABS: Potassium 5.2 mmol/L (3.5-5.1)
--- NOTE | 2023-12-31 07:41 | P.PCN ---
Date of Procedure: 12/31/23 Description of Procedure: Indication: Atrial flutter Procedure Description: After explaining the procedure to the patient, it's risk and complications, blood pressure, heart rate and O2 saturation were monitored. The throat was sprayed with Cetacaine. Patient received sedation per anesthesia department. The probe was introduced into the esophagus without difficulty. Images were obtained. Following that, the probe was removed. There was no immediate complication. Findings: Left atrial size is dilated, left atrial appendage is normal. Left ventricular size and systolic function are normal. The aortic valve revealed a bicuspid aortic valve with calcification and raphae. Mild thickening of the mitral valve leaflets was noted. The tricuspid and pulmonic valve are normal. Descending thoracic aorta is normal. No pericardial fusion was noted. Contrast bubble study revealed no shunting across the interatrial septum. Doppler: Pulse wave and color Doppler were obtained, and revealed mild mitral, aortic and tricuspid regurgitation. There was evidence of [id number] shunting through an ASD. Conclusion: 1. Dilated left atrium with normal appearance of the left atrial appendage 2. Normal ventricle size and systolic function 3. Bicuspid aortic valve with mild aortic regurgitation 4. Mild mitral and tricuspid regurgitation 5. Evidence of [id number] shunting through an ASD with no reversal of shunt. Cardioversion: After obtaining sedated state by the anesthesia department and performing BELINDA synchronized biphasic cardioversion using 150 J was performed with anabaptism of sinus mechanism. There was no immediate complications.
[2023-12-31 07:47] VITALS: RESP 16
[2023-12-31 08:25] VITALS: TEMP 98
[2023-12-31] MEDS ORDERED: METOPROLOL SUCCINATE (ER) 25 MG TAB.ER.24H PO SCH (09:00)
[2023-12-31] MEDS ORDERED: DABIGATRAN 150 MG CAP PO SCH (09:00)
[2023-12-31] MEDS ORDERED: NON FORMULARY DRUG (Pantoprazole Sodium [Protonix] 20 MG Tablet.Dr) PO SCH (09:00)
[2023-12-31 09:42] VITALS: BP 116/76; PULSE 59
[2023-12-31] MEDS ORDERED: ATORVASTATIN 40 MG TAB PO SCH (21:00)
[2023-12-31] MEDS ORDERED: TAMSULOSIN 0.4 MG CAP.ER.24H PO SCH (21:00)
== END 2023-12-31 09:53 | disposition home or self-care (01) ==
LOC: OR 05:35
PROVIDERS: ATTEND Internal Medicine Interventional Cardiology
DX: I48.91 Unspecified atrial fibrillation (principal); I08.3 Combined rheumatic disorders of mitral, aortic and tricuspid valves; I47.10 Supraventricular tachycardia, unspecified; Z87.891 Personal history of nicotine dependence; K21.9 Gastro-esophageal reflux disease without esophagitis; Z79.899 Other long term (current) drug therapy; Z79.01 Long term (current) use of anticoagulants
CPT/HCPCS: 93312; 93320; 93325; 92960; 80048; J2001; J2704

== ENCOUNTER → 2024-04-05 | Outpatient (CLI) | payer MEDICARE, OTHER ==
[2024-04-05 10:00] LABS: Basophils % (A) 1 %; Eosinophils # (A) 0.1 k/uL (0-0.7); Eosinophils % (A) 1 %; HCT 46.4 % (39.0-53.0); HGB 14.5 gm/dL (13.0-17.5); Lymphocytes # (A) 1.2 k/uL (1.0-4.8); Lymphocytes % (A) 19 %; MCH 30.7 pg (25.0-35.0); MCHC 31.3 g/dL (31.0-37.0); MCV 98.2 fL (80.0-100.0); Mean Platelet Volume 7.5; Monocytes # (A) 0.5 k/uL (0-1.0); Monocytes % (A) 9 %; Neutrophils # (A) 4.1 k/uL (1.3-7.7); Neutrophils % (A) 68 %; Platelet Count 188 k/uL (150-450); RBC 4.73 m/uL (4.30-5.90); RDW 12.4 % (11.5-15.5)
[2024-04-05 16:02] LABS: ALT 30 U/L (10-49); AST 27 U/L (14-35); Albumin 4.5 g/dL (3.8-4.9); Albumin/Globulin Ratio 1.88 Ratio (1.60-3.17); Alkaline Phosphatase 54 U/L (41-126); BUN/Creat Ratio 14.71 Ratio (12.00-20.00); Blood Urea Nitrogen 20.6 mg/dL (9.0-27.0); Calcium 9.6 mg/dL (8.7-10.3); Carbon Dioxide 26.6 mmol/L (21.6-31.8); Chloride 96 mmol/L (96-109); Chol/HDL Ratio 2.02 Ratio; Globulin 2.4 g/dL (1.6-3.3); Glucose 100 mg/dL (70-110); LDL Cholesterol,Calculated 77.2 mg/dL (0.0-131.0); Potassium 4.8 mmol/L (3.5-5.5); Sodium 136 mmol/L (135-145); T4, Free (Free Thyroxine) 1.57 ng/dL (0.80-1.80); Total Bilirubin 0.5 mg/dL (0.3-1.2); Total Protein 6.9 g/dL (6.2-8.2)
== END | disposition home or self-care (01) ==
LOC: LABWHC1 09:11
PROVIDERS: ATTEND Internal Medicine Interventional Cardiology
DX: I48.0 Paroxysmal atrial fibrillation (principal); E78.2 Mixed hyperlipidemia; K22.70 Barrett's esophagus without dysplasia; D47.2 Monoclonal gammopathy; R97.20 Elevated prostate specific antigen [PSA]
CPT/HCPCS: 36415; 80053; 80061; 83036; 84153; 84439; 84443; 85025

== ENCOUNTER → 2024-10-07 | Outpatient (CLI) | payer MEDICARE, OTHER ==
[2024-10-07 16:12] LABS: ALT 19 U/L (10-49); AST 28 U/L (14-35); Albumin 4.6 g/dL (3.8-4.9); Albumin/Globulin Ratio 1.77 Ratio (1.60-3.17); Alkaline Phosphatase 75 U/L (41-126); BUN/Creat Ratio 15.25 Ratio (12.00-20.00); Blood Urea Nitrogen 18.3 mg/dL (9.0-27.0); Calcium 9.4 mg/dL (8.7-10.3); Carbon Dioxide 28.6 mmol/L (21.6-31.8); Chloride 102 mmol/L (96-109); Chol/HDL Ratio 2.45 Ratio; Globulin 2.6 g/dL (1.6-3.3); Glucose 101 mg/dL (70-110); LDL Cholesterol,Calculated 80.2 mg/dL (0.0-131.0); Potassium 4.8 mmol/L (3.5-5.5); Sodium 141 mmol/L (135-145); Total Bilirubin 0.5 mg/dL (0.3-1.2); Total Protein 7.2 g/dL (6.2-8.2); VLDL Calculation 12.68 mg/dL (5.00-40.00)
== END | disposition home or self-care (01) ==
LOC: LABWHC1 09:43
PROVIDERS: ATTEND Internal Medicine Interventional Cardiology
DX: I10 Essential (primary) hypertension (principal); E78.2 Mixed hyperlipidemia
CPT/HCPCS: 36415; 80053; 80061

== ENCOUNTER → 2025-02-08 | Outpatient (CLI) | payer MEDICARE, OTHER ==
[2025-02-08 15:07] LABS: Basophils # (A) 0.06 X 10*3/uL (0.00-0.10); Basophils % (A) 1.4 %; Eosinophils # (A) 0.19 X 10*3/uL (0.04-0.35); Eosinophils % (A) 4.6 %; HCT 42.5 % (39.6-50.0); Lymphocytes # (A) 0.75 X 10*3/uL (0.90-5.00); Lymphocytes % (A) 18.1 %; MCH 29.9 pg (27.0-32.0); MCHC 32.9 g/dL (32.0-37.0); MCV 90.8 FL (80.0-97.0); Mean Platelet Volume 9.6 FL (9.5-12.2); Monocytes # (A) 0.53 X 10*3/uL (0.20-1.00); Monocytes % (A) 12.8 %; NRBC Per 100 WBC 0 X 10*3/uL (0.00-0.01); Neutrophils % (A) 62.9 %; Platelet Count 198 X 10*3/uL (140-440); RBC 4.68 X 10*6/uL (4.40-5.60); RDW 12.4 % (11.5-14.5); WBC 4.14 X 10*3/uL (4.50-10.00)
[2025-02-08 15:18] LABS: Protein, Total 6.8 g/dL (6.2-8.2)
[2025-02-08 15:20] LABS: ALT 21 U/L (10-49); AST 30 U/L (14-35); Albumin 4.3 g/dL (3.8-4.9); Albumin/Globulin Ratio 1.65 Ratio (1.60-3.17); Alkaline Phosphatase 62 U/L (41-126); BUN/Creat Ratio 14.08 Ratio (12.00-20.00); Blood Urea Nitrogen 18.3 mg/dL (9.0-27.0); Calcium 9.1 mg/dL (8.7-10.3); Carbon Dioxide 24.3 mmol/L (21.6-31.8); Chloride 101 mmol/L (96-109); Chol/HDL Ratio 2.07 Ratio; Globulin 2.6 g/dL (1.6-3.3); Glucose 98 mg/dL (70-110); LDL Cholesterol,Calculated 60.1 mg/dL (0.0-131.0); Sodium 137 mmol/L (135-145); Total Bilirubin 0.7 mg/dL (0.3-1.2); Total Protein 6.9 g/dL (6.2-8.2); Uric Acid 7.5 mg/dL (3.7-8.7); VLDL Calculation 8.74 mg/dL (5.00-40.00)
[2025-02-09 14:47] LABS: Free Kappa Lt Chain Qnt, Serum 2.05 mg/dL (0.33-1.94); Free Lambda Lt Chain Qnt, Seru 1.37 mg/dL (0.57-2.63)
== END | disposition home or self-care (01) ==
LOC: LABWHC1 09:48
PROVIDERS: ATTEND Internal Medicine Clinical Cardiac Electrophysiology
DX: D47.2 Monoclonal gammopathy (principal); I48.0 Paroxysmal atrial fibrillation; M10.9 Gout, unspecified; E78.2 Mixed hyperlipidemia; R73.01 Impaired fasting glucose
CPT/HCPCS: 36415; 80053; 80061; 83036; 83883; 84165; 84443; 84550; 85025; 86334